=== PATIENT | male | born 1995 | race Two or more races ===

== ENCOUNTER 2025-01-14 06:58 | Emergency (ER) | payer SELFPAY ==
[2025-01-14 07:09] VITALS: BP 156/82; PULSE 92; RESP 18; TEMP 36.7; O2SAT 99
--- NOTE | 2025-01-14 07:15 | EKG_ITS ---
[facility] Test Date: 2025-01-14 Pat Name: MICHELLE RANGEL Department: Room: - Gender: Male [employer]: : 1995 Requested By: Jose Owens Order Number: [id number] Reading MD: Jose Owens Measurements Intervals Candor Rate: 103 P: 74 DC: 144 QRS: 80 QRSD: 122 T: 65 QT: 342 QTc: 449 Interpretive Statements SINUS TACHYCARDIA MODERATE INTRAVENTRICULAR CONDUCTION DELAY [110+ ms QRS DURATION] ABNORMAL RHYTHM ECG No previous ECG available for comparison /store/S0/[id number].pdf
--- NOTE | 2025-01-14 07:17 | EDNOTE_ITS ---
ED General RME/HPI General Chief complaint: General Adult/Misc Complain Stated complaint: NOT FEELING GOOD Time Seen by Provider: 01/14/25 07:08 Arrival date/time: 01/14/25 06:58 RME / HPI RME / HPI narrative: 29-year-old male presents to the ER complaining of generalized anxiety feeling with chest tightness that radiates to his stomach and throat as if his throat is going to close up on him since last night when he took his preworkout of about 250 mg of caffeine before going to the gym and its persisted until this morning, patient was able to sleep for a little bit as he went to bed at 3 AM however his symptoms persisted when he woke up therefore he came to the ER and they are associated with 1 episode of nausea vomiting. Patient states he has had these symptoms in the past when he took his preworkout. Denies any shortness of breath, family history of early cardiac disease, recent travel, surgeries, immobilizations, history of leg swelling or blood clots, or any known medical problems, smoking, drinking, drug use. Related Data Allergies Allergy/AdvReac Type Severity Reaction Status Date / Time No Known Allergies Allergy Verified 01/14/25 06:59 ED Exam Narrative Physical exam: Constitutional: Patient alert and oriented. Well appearing. No acute distress. Not toxic appearing. Head: Normocephalic, atraumatic. Eyes: Periorbital regions bilaterally normal to inspection. Conjunctiva clear bilaterally. Sclera anicteric bilaterally. Pupils equal, round, reactive to light bilaterally. Extraocular movements intact bilaterally. Mouth/Throat: Mucous membranes moist. No stridor or muffled voice. No trismus. Handling secretions without difficulty. Airway widely patent. Neck: Supple. Trachea midline. No JVD. No nuchal rigidity. Normal range of motion. Respiratory: Normal effort. No accessory muscle use or respiratory distress. Lungs clear to auscultation bilaterally without rhonchi, wheezes, or crackles. Cardiovascular: RRR. Normal S1/S2. No murmurs or rubs. Radial pulses intact bilaterally. Abdomen: Soft. Non-distended. Non-tender throughout. No pulsatile mass. No guarding or rebound. Negative Mak?s sign. Negative McBurney?s point tenderness. Negative Rovsing?s. Back: No midline tenderness or step-offs. No CVA tenderness to palpation kriss aterally. Upper Extremities: No gross deformities. Lower Extremities: No gross deformities. No edema or calf tenderness. Neuro: Speech normal. No gross motor or sensory deficits to upper or lower e xtremities bilaterally. GCS 15. CN II?XII grossly intact. Skin: Warm, dry, normal color. Psych: Normal affect. Cooperative. Normal insight. Course Quality Measures none Orders Category Date Time Status EKG (ED ONLY) *Do not use* NOW Care 01/14/25 07:15 Completed EKG (ED Only) Stat Exams 01/14/25 07:15 Draft XR chest 1V portable Stat Exams 01/14/25 11:56 Completed CBC Stat Lab 01/14/25 07:56 Completed Comprehensive Metabolic Panel Stat Lab 01/14/25 07:56 Completed Lipase Stat Lab 01/14/25 07:56 Completed TSH [Thyroid Stimulating Hormone] Stat Lab 01/14/25 07:56 Completed Troponin I Stat Lab 01/14/25 07:56 Completed Urinalysis, C/S if Indicated Stat Lab 01/14/25 07:38 Completed LORazepam [Ativan] Med 01/14/25 07:16 Discontinued 0.5 mg PO X1 ONE Ondansetron Odt [Zofran Odt] Med 01/14/25 07:16 Discontinued 4 mg PO X1 ONE Vital Signs Vital signs: Vital Signs Temperature 98.0 F 01/14/25 07:09 Pulse Rate 92 01/14/25 07:09 Respiratory Rate 18 01/14/25 07:09 Blood Pressure 156/82 H 01/14/25 07:09 Pulse Oximetry (%) 99 01/14/25 07:09 Oxygen Delivery Method Room Air 01/14/25 07:09 PROCEDURES: EKG Interpretation #1: Date of EK01/14/25 Time of EK:17 Rate: 103 Interpretation: Reviewed by me Additional EKG comment: Sinus tachycardia, no ST elevation or T wave inversions good R wave progression Discharge Plan Plan Patient Disposition: HOME (Self Care) Patient condition on transfer: Stable Prescriptions/Referrals Referrals: Rudy Groves MD [Primary Care Provider, Family Practice] - In 1 week Problem List Clinical Impression: Caffeine abuse Patient/Caregiver Discharge Instructions Other Activity Instructions:: Stop taking supplements with caffeine in them, stick to regular workouts without any preworkout supplements. Follow-up with your primary care doctor. Education Materials: ED Chest Pain, Noncardiac Print Language: Khmer Stand Alone Forms: Dominique Award Info., Patient Portal Info Letter PA/CHERIE Supervising Physician CATHIE Supervising Physician: Jame Castelan ENP MDM Narrative MDM hospital course (for use when minimal MDM required): MDM Differential diagnosis includes musculoskeletal chest pain, GERD, anxiety, caffiene adverse effect Less likely etiologies include: PE: Wells low risk, PERC negative. ACS: HEART Score low risk, suggesting low probability of major adverse cardiac event in the next 6 weeks. Aortic Dissection: Unlikely given palpable pulses, warm extremities bilaterally, and no radiation of pain. Tamponade: Unlikely given absence of hypotension, muffled heart sounds, JVD, friction rub, narrow pulse pressure, low-voltage EKG Endocarditis: Unlikely as no Godoy criteria present (Goyal spots, splinter hemorrhages, Osler nodes). CHF: Unlikely given no JVD, peripheral edema, or orthopnea. The patient is clinically well-appearing and stable. Pt was given zofran and ativan , NICK Robb performed final disposition which was discharge home after pt went to main ED Labs Lab(s) Interpretation(s): EKG without acute ischemia, high grade AV block, arrhythmia CBC without severe leukocytosis, anemia, or thrombocytopenia neutrophil number is minimally elevated at 7.8 CMP without severe hyperbilirubinemia, transaminitis, acute renal failure or severe electrolyte derangement glucose is minimally elevated 119, TSH within normal limits Lipase without severe elevation Troponin undetectable Chest x-ray without acute cardiopulmonary abnormality however limited view of left full chest wall Imaging Imaging interpretation: interpreted by me and see narrative above Medication Administration(s) Medication Administration History Discontinued Medications Lorazepam (Lorazepam 0.5 Mg Tablet) 0.5 mg PO X1 ONE Stop: 01/14/25 07:17 Last Admin: 01/14/25 07:36 Dose: 0.5 mg Documented By: [facility] Ondansetron HCl (Ondansetron Odt 4 Mg Tabrap) 4 mg PO X1 ONE; Protocol Stop: 01/14/25 07:17 Last Admin: 01/14/25 07:36 Dose: 4 mg Documented By: [facility] Diagnosis Differential Diagnosis ED Complaint MDM: Anxiety, Adverse effect of caffiene
[2025-01-14] MEDS: ONDANSETRON ODT 4 MG TABRAP PO (07:36)
[2025-01-14 07:53] LABS: Collection Type, Urine Clean Catch; Squamous Epithelial Cell,Urine 0 /hpf (0-5)
[2025-01-14 08:05] LABS: Bilirubin,Urine Negative (Negative); Blood,Urine Negative (Negative); Clarity,Urine Clear (Clear/Hazy); Color,Urine Colorless (Lt Yel-Yel); Culture Indicated,Urine Not Indicated; Glucose, Urine Negative (Negative); Ketones,Urine Negative (Negative); Leukocyte Esterase,Urine Negative (Negative); Nitrite,Urine Negative (Negative); PH,Urine 6.5 (5.0-7.0); Protein,Urine Negative (Neg - Trace); RBC,Urine < 1 /hpf (0-3); Specific Gravity,Urine 1.003 (1.001-1.035); Urobilinogen,Urine Negative mg/dL (0.0-1.0); WBC,Urine < 1 /hpf (0-5)
[2025-01-14 08:10] LABS: Basophils # (Auto) 0.0 Thou/mm3 (0.0-0.2); Basophils % (Auto) 0 % (0-2.5); Eosinophils # (Auto) 0.0 Thou/mm3 (0.0-0.5); Eosinophils % (Auto) 0 % (0-10); Hematocrit 44.4 % (41.0-53.0); Hemoglobin 15.1 g/dL (13.5-16.0); Immature Granulocytes Auto 0.03 Thou/mm3 (0.00-0.00); Lymphocytes # (Auto) 1.6 Thou/mm3 (1.0-4.8); Lymphocytes % (Auto) 16 % (10-50); Mean Corpuscular HGB Conc 34.0 g/dl (31.0-37.0); Mean Corpuscular Hemoglobin 29.1 pg (25.0-35.0); Mean Corpuscular Volume 86 fL (80-100); Monocytes # (Auto) 0.5 Thou/mm3 (0.0-0.8); Monocytes % (Auto) 5 % (0-12); Neutrophils # (Auto) 7.8 Thou/mm3 (1.8-7.7); Neutrophils % (Auto) 78 % (37-80); Nucleated Red Blood Cell # 0.00 Thou/mm3 (0.00-0.00); Nucleated Red Blood Cell % 0 /100 WBC (0); Platelet Count 172 Thou/mm3 (140-440); RDW Standard Deviation 38.3 fL (35.1-43.9); Red Blood Count 5.19 Miln/mm3 (4.50-5.90); White Blood Count 10.0 Thou/mm3 (3.8-10.6)
[2025-01-14 08:35] LABS: Alanine Aminotransferase < 7 U/L (10-49); Albumin, Serum 4.9 gm/dL (3.5-5.0); Albumin/Globulin Ratio 2.3 (1.2-2.2); Alkaline Phosphatase 80 U/L (46-116); Anion Gap 10 (7-16); Aspartate Amino Transferase 18 U/L (0-34); BUN/Creatinine Ratio 12 Ratio (12-20); Bilirubin,Total 0.4 mg/dL (0.3-1.2); Blood Urea Nitrogen 13 mg/dL (9-23); Calcium 9.4 mg/dL (8.3-10.6); Calcium (Corrected) 9.4 mg/dL (8.5-10.1); Carbon Dioxide 27.3 mMol/L (20.0-31.0); Chloride 105 mMol/L (98-107); Creatinine (Component) 1.1 mg/dL (0.6-1.3); Globulin 2.1 gm/dL (2.3-3.5); Glucose 119 mg/dL (74-106); Lipase 28 U/L (12-53); Osmolality,Calculated 284 (275-295); Potassium 4.0 mMol/L (3.4-5.1); Sodium 142 mMol/L (136-145); Thyroid Stimulating Hormone 2.05 uIU/mL (0.55-4.78); Total Protein 7.0 gm/dL (5.7-8.2); Troponin I < 0.002 ng/mL (0.0-0.045); eGFR > 60 See Note
--- NOTE | 2025-01-14 11:56 | XR_ITS ---
EXAMINATION: PA chest single view TECHNIQUE: Upright PA chest single view Date and time: January 14, 2025, 12 0 9:00 p.m. INDICATIONS: Shortness of breath today. FINDINGS: Normal heart size The lungs are clear. Osseous structures are intact. Film does not include the entire left chest wall IMPRESSION: Limited study No pneumonia or pulmonary edema
--- NOTE | 2025-01-14 12:15 | PD.EDADULT ---
ED General RME/HPI General Chief complaint: General Adult/Misc Complain Stated complaint: NOT FEELING GOOD Time Seen by Provider: 01/14/25 07:08 Arrival date/time: 01/14/25 06:58 CC: Racing heart insomnia anxiety chest pressure HPI ongoing after the patient took caffeine supplements prior to his workout last night. Patient was unable to sleep, and then he became worried which made his symptoms even worse. Patient denies fever chills shortness of breath difficulty breathing. Patient typically does heavy workouts and decided to take caffeine last night before his workout as a preworkout supplement. Currently the patient is somewhat anxious but not in any acute distress. RME / HPI RME / HPI narrative: 29-year-old male presents to the ER complaining of generalized anxiety feeling with chest tightness that radiates to his stomach and throat as if his throat is going to close up on him since last night when he took his preworkout of about 250 mg of caffeine before going to the gym and its persisted until this morning, patient was able to sleep for a little bit as he went to bed at 3 AM however his symptoms persisted when he woke up therefore he came to the ER and they are associated with 1 episode of nausea vomiting. Patient states he has had these symptoms in the past when he took his preworkout. Denies any shortness of breath, family history of early cardiac disease, recent travel, surgeries, immobilizations, history of leg swelling or blood clots, or any known medical problems, smoking, drinking, drug use. Related Data Allergies Allergy/AdvReac Type Severity Reaction Status Date / Time No Known Allergies Allergy Verified 01/14/25 06:59 Review of Systems Review of Systems Narrative Review of Systems: GEN: No fever, no chills, no weight loss EYES: No discharge, no visual changes, no pain HEENT: No ear pain, no congestion, no sore throat PULM: No shortness of breath, no cough, no congestion CV: No chest pain, no dyspnea on exertion, no palpitations GI: No nausea, no vomiting, no diarrhea, no pain, no constipation : No frequency, no urgency, no dysuria MUSC/SKEL: No joint pain, no back pain SKIN: No rash PSYCH: No hallucinations, no depression HEME/LYMPH: No easy bleeding or bruising tendencies NEURO: No weakness, no headache Past Medical History Social History SMOKING STATUS: Never smoker ED Exam Narrative Physical exam: [General: Anxious but not in any acute distress Head normocephalic HEENT: Within acceptable limits Neck is supple nontender Chest equal chest rise nontender to palpation Respiratory: Clear to auscultation no wheezes crackles or rubs CV: Rate rhythm is regular no murmurs rubs or clicks Abdomen is distended secondary to body habitus soft nontender no masses positive bowel sounds all 4 quadrants Back: No CVA tenderness no spinous process tenderness from cervical spine thoracic and lumbar spine Skin: Intact no petechiae rash induration ulceration or crepitus Extremities: Moving all extremity against resistance cap refill less than 2 seconds neurosensory intact Neuro: Awake alert oriented x3 Glascow coma 15 no focal deficits] Course Quality Measures none Orders Category Date Time Status EKG (ED ONLY) *Do not use* NOW Care 01/14/25 07:15 Completed EKG (ED Only) Stat Exams 01/14/25 07:15 Draft XR chest 1V portable Stat Exams 01/14/25 11:56 Ordered CBC Stat Lab 01/14/25 07:56 Completed Comprehensive Metabolic Panel Stat Lab 01/14/25 07:56 Completed Lipase Stat Lab 01/14/25 07:56 Completed TSH [Thyroid Stimulating Hormone] Stat Lab 01/14/25 07:56 Completed Troponin I Stat Lab 01/14/25 07:56 Completed Urinalysis, C/S if Indicated Stat Lab 01/14/25 07:38 Completed LORazepam [Ativan] Med 01/14/25 07:16 Discontinued 0.5 mg PO X1 ONE Ondansetron Odt [Zofran Odt] Med 01/14/25 07:16 Discontinued 4 mg PO X1 ONE Vital Signs Vital signs: Vital Signs Temperature 98.0 F 01/14/25 07:09 Pulse Rate 92 01/14/25 07:09 Respiratory Rate 18 01/14/25 07:09 Blood Pressure 156/82 H 01/14/25 07:09 Pulse Oximetry (%) 99 01/14/25 07:09 Oxygen Delivery Method Room Air 01/14/25 07:09 Discharge Plan Plan Patient Disposition: HOME (Self Care) Patient condition on transfer: Stable Prescriptions/Referrals Referrals: Rudy Groves MD [Primary Care Provider, Family Practice] - In 1 week Problem List Clinical Impression: Caffeine abuse Patient/Caregiver Discharge Instructions Other Activity Instructions:: Stop taking supplements with caffeine in them, stick to regular workouts without any preworkout supplements. Follow-up with your primary care doctor. Education Materials: ED Chest Pain, Noncardiac Print Language: Slovak Stand Alone Forms: Dominique Award Info., Patient Portal Info Letter PA/CHERIE Supervising Physician PAMARCELLO Supervising Physician: Jame Castelan ENP MDM Clinical Information Provided by: patient Medical Records reviewed [facility] Meds/Rx considered, not ordered None Labs/Rad/Tests considered, not ordered None Chronic Illness/Social Conditions which may negatively complicate care or outcome(s)-explain: None or not applicable EKG Interpretation EKG #1: EKG Interpretation: EKG performed at 0 717 shows a ventricular rate of 103 NH interval 144 QRS of 122 QTc of 402 the sinus tachycardia. Labs Labs: interpreted by ca Lab(s) Interpretation(s): CBC shows no acute leukocytosis anemia thrombocytopenia CMP shows no significant electrolyte imbalances other than a glucose elevated at 119 no other electrolyte imbalances renal impairment transaminitis or T. bili elevation Lipase is within acceptable limits TSH is 2.05 Urine is unremarkable for UTI Imaging Imaging interpretation: none Medication Administration(s) none Medication Administration History Discontinued Medications Lorazepam (Lorazepam 0.5 Mg Tablet) 0.5 mg PO X1 ONE Stop: 01/14/25 07:17 Last Admin: 01/14/25 07:36 Dose: 0.5 mg Documented By: [facility] Ondansetron HCl (Ondansetron Odt 4 Mg Tabrap) 4 mg PO X1 ONE; Protocol Stop: 01/14/25 07:17 Last Admin: 01/14/25 07:36 Dose: 4 mg Documented By: [facility] Diagnosis Differential Diagnosis ED Complaint MDM: Anxiety, caffeine overdose, somatizations
== END 2025-01-14 12:57 | disposition home or self-care (01) ==
PROVIDERS: Physician Assistant; Emergency Provider Emergency Medicine; PCP Family Medicine
DX: F15.10 Other stimulant abuse, uncomplicated (principal); F41.1 Generalized anxiety disorder; G47.00 Insomnia, unspecified
CPT/HCPCS: 36415; 71045; 80053; 81001; 83690; 84443; 84484; 85025; 93005; 99283; Q0162; A9270